=== PATIENT | female | born 1950 | race Caucasian/White ===

== ENCOUNTER 2019-07-24 07:17 | Day surgery (SDC) | payer MEDICARE, OTHER ==
[~2019-07-24] VITALS: Ht 152.4 cm; Wt 81.8 kg
[~2019-07-24 07:17] MED LIST: FOLIC ACID0.8 MG PO; METTREX2.5 PO; Prilosec Otc20 MG PO; SIMPONI50 MG/0.1 SC
--- NOTE | 2019-07-24 08:00 | NUR ---
History, Chart, Medications and Allergies reviewed before start of procedure. Patient confirms NPO status and agrees with scheduled surgery. Lungs clear T/O to Auscultation. Patient states colon prep results clear. Pre-Op teaching done. Pt verbalizes understanding. Patient States Post-Procedure ride home has been arranged.
--- NOTE | 2019-07-24 09:09 | NUR ---
07/24/19 0909 DELMY CRUZ History, Chart, Medications and Allergies reviewed before start of procedure.3-LEAD EKG REVIEWED WITH PHYSICIAN PRIOR TO START OF PROCEDURE.O2 VIA N/C INTACT THROUGHOUT SEDATION/PROCEDURE. MONITOR INTACT WITH CONTINUOUS PULSE OXIMETRY AND INTERMITTENT BP.PATIENT DETERMINED TO BE ASA APPROPRIATE FOR PROPOFOL SEDATION PRIOR TO START OF PROCEDURE BY .
--- NOTE | 2019-07-24 10:22 | NUR ---
Patient up to Ambulate independently. Gait steady. Discharge instructions reviewed with patient. Patient verbalizes understanding. Copy given to patient to take home. Patient States Post-Procedure ride home has been arranged. Discharged via wheelchair to private car for ride home. ALL BELONINGS RETURNED TO PATIENT.
== END 2019-07-24 23:02 | disposition home or self-care (01) ==
LOC: ORSCMMR 07:17 → ORD 08:30 → ORSCMMR 23:02
PROVIDERS: Internal Medicine Gastroenterology
PROC: 0DBK8ZX Excision of Ascending Colon, Via Natural or Artificial Opening Endoscopic, Diagnostic (ICD-10-PCS; principal; 2019-07-24 08:30)
DX: Z12.11 Encounter for screening for malignant neoplasm of colon (principal); Z86.010 Personal history of colon polyps; D12.2 Benign neoplasm of ascending colon; K57.30 Diverticulosis of large intestine without perforation or abscess without bleeding; K64.8 Other hemorrhoids; K21.9 Gastro-esophageal reflux disease without esophagitis; Z79.899 Other long term (current) drug therapy
CPT/HCPCS: 88305; J2704; J7120

== ENCOUNTER → 2020-11-22 | Outpatient (CLI) | payer MEDICARE, OTHER | LOC: LAB EV 12:41 → LAB SHORT 12:41 | DX: N39.0 Urinary tract infection, site not specified (principal) | CPT/HCPCS: 87077; 87086; 87186 ==

== ENCOUNTER → 2020-11-25 | Outpatient (CLI) | payer MEDICARE, OTHER | END | disposition home or self-care (01) | LOC: LAB SHORT 12:09 → LAB 12:09 | DX: R10.13 Epigastric pain (principal) | CPT/HCPCS: 87338 ==

== ENCOUNTER → 2021-02-15 | Outpatient (CLI) | payer MEDICARE, OTHER ==
[2021-02-16 11:38] LABS: Candida species (DNA Probe) Negative (NEGATIVE); G. vaginalis (DNA Probe) Positive (NEGATIVE); T. vaginalis (DNA Probe) Negative (NEGATIVE)
== END | disposition home or self-care (01) ==
LOC: LAB SHORT 14:49 → LAB 14:49
PROVIDERS: Nurse Practitioner Family
DX: N89.8 Other specified noninflammatory disorders of vagina (principal)
CPT/HCPCS: 87480; 87510; 87660

== ENCOUNTER → 2021-08-03 | Outpatient (CLI) | payer MEDICARE, OTHER ==
[2021-08-04 09:35] LABS: Candida species (DNA Probe) Negative (NEGATIVE); G. vaginalis (DNA Probe) Positive (NEGATIVE); T. vaginalis (DNA Probe) Negative (NEGATIVE)
== END | disposition home or self-care (01) ==
LOC: LAB SHORT 13:22
PROVIDERS: Nurse Practitioner Family
DX: L29.3 Anogenital pruritus, unspecified (principal)
CPT/HCPCS: 87480; 87510; 87660

== ENCOUNTER → 2021-08-22 | Outpatient (CLI) | payer OTHER ==
[2021-08-23 09:44] LABS: Candida species (DNA Probe) Negative (NEGATIVE); G. vaginalis (DNA Probe) Negative (NEGATIVE); T. vaginalis (DNA Probe) Negative (NEGATIVE)
== END | disposition home or self-care (01) ==
LOC: LAB 15:19 → LAB SHORT 15:19
PROVIDERS: Family Medicine
DX: L29.3 Anogenital pruritus, unspecified (principal)
CPT/HCPCS: 87480; 87510; 87660

== ENCOUNTER 2021-09-26 12:43 | Emergency (ER) | payer OTHER, MEDICARE ==
[~2021-09-26] VITALS: Ht 154.9 cm; Wt 57.6 kg
[2021-09-26] MEDS ORDERED: VENLAFAXINE HCL50 MG PO (13:13)
[2021-09-26] MEDS ORDERED: Norco 5-325 Ta1 EACH PO (13:24)
== END 2021-09-26 14:06 | disposition home or self-care (01) ==
LOC: ER 12:43
DX: S93.401A Sprain of unspecified ligament of right ankle, initial encounter (principal); S90.31XA Contusion of right foot, initial encounter; K21.9 Gastro-esophageal reflux disease without esophagitis; Z23 Encounter for immunization; Z88.0 Allergy status to penicillin; Z88.2 Allergy status to sulfonamides; Z79.899 Other long term (current) drug therapy; V03.90XA Pedestrian on foot injured in collision with car, pick-up truck or van, unspecified whether traffic or nontraffic accident, initial encounter
CPT/HCPCS: 73610; 73630; 90714; A9270

== ENCOUNTER 2021-12-01 06:33 | Day surgery (SDC) | payer MEDICARE, OTHER ==
[~2021-12-01] VITALS: Ht 152.4 cm; Wt 55.9 kg
[~2021-12-01 06:33] MED LIST changes: +Norco 5-325 Ta1 EACH PO; +SIMPONI AR50 MG/4 M1 IV; -SIMPONI50 MG/0.1 SC; +VENLAFAXINE HCL50 MG PO
--- NOTE | 2021-12-01 07:36 | NUR ---
Amb[facility] in [facility] warming gown applied. Patient states colon prep results clear.Lungs clear T/O to Auscultation. History, Chart, Medications and Allergies reviewed before start of procedure.Patient confirms NPO status and agrees with scheduled surgery. Pre-Op teaching done. Pt verbalizes understanding. Patient States Post-Procedure ride home has been arranged.
--- NOTE | 2021-12-01 08:07 | NUR ---
12/01/21 0807 Sasha March History, Chart, Medications and Allergies reviewed before start of procedure. Patient confirms NPO status and agrees with scheduled surgery. 3-LEAD EKG REVIEWED WITH PHYSICIAN PRIOR TO START OF PROCEDURE. MONITOR INTACT WITH CONTINUOUS PULSE OXIMETRY AND INTERMITTENT BP. PATIENT DETERMINED TO BE ASA APPROPRIATE FOR PROPOFOL SEDATION PRIOR TO START OF PROCEDURE BY
--- NOTE | 2021-12-01 08:46 | NUR ---
Discharge instructions reviewed with patient. Patient verbalizes understanding. Copy given to patient to take home.
--- NOTE | 2021-12-01 08:54 | NUR ---
Discharged via wheelchair to private car for ride home.
== END 2021-12-01 08:57 | disposition home or self-care (01) ==
LOC: ORSCMMR 06:33 → ORSCSDS 08:00 → ORSCMMR 08:00 → ORD 08:00 → ORSCMMR 08:57
PROVIDERS: Surgery
PROC: 0DBK8ZX Excision of Ascending Colon, Via Natural or Artificial Opening Endoscopic, Diagnostic (ICD-10-PCS; principal; 2021-12-01 08:00)
DX: R63.4 Abnormal weight loss (principal); R93.3 Abnormal findings on diagnostic imaging of other parts of digestive tract; D12.2 Benign neoplasm of ascending colon; F41.9 Anxiety disorder, unspecified; E55.9 Vitamin D deficiency, unspecified; F43.21 Adjustment disorder with depressed mood; Z79.899 Other long term (current) drug therapy
CPT/HCPCS: 88305; J2704; J7120

== ENCOUNTER 2023-07-20 13:48 | Emergency (ER) | payer MEDICARE, OTHER ==
[~2023-07-20] VITALS: Ht 160 cm; Wt 74.8 kg
[2023-07-20 14:24] LABS: BASOPHILS ABSOLUTE AUTO 0.06 K/mm3 (0.00-0.23); BASOPHILS PERCENT AUTO 1 % (0-2); EOSINOPHILS ABSOLUTE AUTO 0.13 K/mm3 (0.00-0.68); EOSINOPHILS PERCENT AUTO 2 % (0-6); Hematocrit 44.7 % (33.0-51.0); Hemoglobin 15.4 g/dL (11.5-16.0); IMMATURE GRAN ABSOLUTE AUTO 0.02 K/mm3 (0.00-0.10); IMMATURE GRAN PERCENT AUTO 0 % (0-1); LYMPHOCYTES ABSOLUTE AUTO 3.14 K/mm3 (0.84-5.20); LYMPHOCYTES PERCENT AUTO 37 % (21-46); MONOCYTES ABSOLUTE AUTO 0.53 K/mm3 (0.16-1.47); MONOCYTES PERCENT AUTO 6 % (4-13); Mean Corpuscular HGB 31.2 pg (26.0-34.0); Mean Corpuscular HGB Conc 34.5 g/dL (31.5-36.5); Mean Corpuscular Volume 91 fL (80-100); Mean Platelet Volume 9.7 fL (9.1-12.4); NEUTROPHILS ABSOLUTE AUTO 4.59 K/mm3 (1.96-9.15); NEUTROPHILS PERCENT AUTO 54 % (41-73); Platelet Count 290 K/mm3 (150-400); RDW Coefficient Variation 12.1 % (11.7-14.2); Red Blood Cell Count 4.94 M/mm3 (3.80-5.20); White Blood Cell Count 8.47 K/mm3 (4.00-11.30)
[2023-07-20 14:50] LABS: Alanine Aminotransfer (ALT/SGP 23 U/L (12-78); Albumin, Blood 3.9 g/dL (3.4-5.0); Alk Phos 53 U/L (50-136); Anion Gap 5 mmol/L (6-16); Aspartate Aminotrans (AST/SGOT 19 U/L (12-37); Bilirubin, Total 0.6 mg/dL (0.1-1.0); Blood Urea Nitrogen 17 mg/dL (8-24); Bun/Creatinine Ratio 23.8 (12.0-20.0); C-REACTIVE PROTEIN, EXT RANGE <0.290 mg/dL (0.000-0.300); CO2, Blood 27 mmol/L (21-32); Calcium, Blood 9.8 mg/dL (8.5-10.1); Chloride, Blood 110 mmol/L (98-108); Creatinine, Blood 0.72 mg/dL (0.40-1.00); Globulin, Blood 3.8 g/dL (2.2-4.0); Glomerular Filtration Rate 89 (60-); Glucose, Blood 102 mg/dL (70-99); Potassium, Blood 3.6 mmol/L (3.5-5.5); Sodium, Blood 142 mmol/L (136-145); Total Protein, Blood 7.7 g/dL (6.4-8.2)
[2023-07-20 18:45] VITALS: BP 161/90
[2023-07-20] MEDS ORDERED: PROM25 PO (19:06)
[2023-07-20] MEDS ORDERED: IBUP600 PO (19:06)
== END 2023-07-20 19:22 | disposition home or self-care (01) ==
LOC: ER 13:48
PROVIDERS: Emergency Medicine
DX: R51.9 Headache, unspecified (principal); R46.4 Slowness and poor responsiveness; K21.9 Gastro-esophageal reflux disease without esophagitis; Z79.899 Other long term (current) drug therapy; L40.50 Arthropathic psoriasis, unspecified; Z88.0 Allergy status to penicillin; Z88.2 Allergy status to sulfonamides
CPT/HCPCS: 70450; 80053; 85025; 85651; 86140; 93005; 93010; 96361; 96374; 96375; 99285-25; J1100; J1200; J1790; J1885; J7030

== ENCOUNTER → 2023-08-01 | Outpatient (CLI) | payer MEDICARE, OTHER ==
[~2023-08-01] MED LIST changes: +IBUP600 PO; +PROM25 PO
[2023-08-08 05:12] LABS: CORTISOL,U FREE - RATIO TO CRT 22.56 ug/g CRT; CORTISOL,URINE FREE - PER 24H 9.4 ug/d (<=45.0); CORTISOL,URN FREE - PER VOLUME 7.22 ug/L; CREATININE,URINE - PER 24H 416 mg/d (500-1400); CREATININE,URINE - PER VOLUME 32 mg/dL; HOURS COLLECTED 24 hr; TOTAL VOLUME 1300 mL
== END ==
LOC: LAB SHORT 11:08 → LAB 11:08 → LAB SHORT 08-02 11:08 → EDSTATUS 08-02 13:51
PROVIDERS: Nurse Practitioner Family
DX: I10 Essential (primary) hypertension (principal)
CPT/HCPCS: 82530